=== PATIENT | female | born 1990 | race American Indian/Alaskan Native ===

== ENCOUNTER 2017-07-19 14:44 | Outpatient (CLI) | END 2017-07-19 15:55 | disposition home or self-care (01) ==

== ENCOUNTER 2017-08-09 14:44 | Outpatient (CLI) | END 2017-08-09 16:42 | disposition home or self-care (01) ==

== ENCOUNTER 2017-10-19 08:27 | Day surgery (SDC) | END 2017-10-19 16:40 | disposition home or self-care (01) ==